=== PATIENT | male | born 1965 | race Caucasian/White ===

== ENCOUNTER → 2021-04-11 | Outpatient (CLI) | payer MEDICARE, MEDICAID ==
--- NOTE | 2021-04-11 12:00 | Diagnostic Imaging Report ---
Indication: Right knee pain AP, oblique, and lateral views of the right knee are obtained. No fracture or acute bony abnormality seen. There is minimal posterior patellar spurring. There is mild medial joint space narrowing and osteophyte formation. There is a prominent joint effusion. Impression: Mild degenerative findings of the medial and patellofemoral compartments. There is a prominent joint effusion. There is no acute fracture visualized. Dictated by: Dictated on workstation # [id number]
== END ==
LOC: RAD FS 08:48
PROVIDERS: ATTEND Nurse Practitioner
DX: M17.11 Unilateral primary osteoarthritis, right knee (principal)
CPT/HCPCS: 73562

== ENCOUNTER 2021-09-19 22:28 | Emergency (ER) | payer MEDICARE, MEDICAID ==
[~2021-09-19] VITALS: Ht 175.2 cm; Wt 117.7 kg
[2021-09-19] MEDS ORDERED: ONDANSETRON 4 MG/2 ML (SDV) Z0FRAN IVP STA (22:50)
[2021-09-19] MEDS ORDERED: NS IV 1000 ML 1,000 ML IV STA (22:50)
[2021-09-19] MEDS ORDERED: DICYCLOMINE 10 MG/ML (BENTYL) 2 ML AMP IM STA (22:50)
--- NOTE | 2021-09-19 23:09 | ED GI ---
General Chief Complaint: Abdominal/GI Problems Stated Complaint: DIARRHEA Source of Information: Patient, Family (Mother) History of Present Illness Date Seen by Provider: Sep 19, 2021 Time Seen by Provider: 22:31 Initial Comments 56-year-old male presenting with complaints of 1 day of loose stools with diarrhea, one episode of vomiting, abdominal cramping. He states that this has been going on throughout the day. He has had similar symptoms about once every 4 years and in the past if he does not get it taken care of quickly he becomes dehydrated. He does have a history of HIV but is well controlled with medicine. He has diabetes controlled with medication and diet. He also has hypertension. He has no known ill contacts. He denies any fever or chills. He was having generalized body aches. He thought that maybe he had eaten something wrong. since he continued to have loose stools he came to the emergency department to be evaluated Timing/Duration: 12-24 Hours Severity/Quality: Moderate, Aching, Cramping Location: Generalized Abdomen Activities at Onset: None Modifying Factors: Worsens With Eating Associated Symptoms: No Back Pain, No Chest Pain, No Diaphoresis, No Fever/Chills; Fatigue; No Headache, No Heartburn; Nausea/Vomiting (x1 episode); No Rash, No Shortness of Air, No Swelling/Mass in Abdomen, No Syncope, No Weakness Allergies and Home Medications Allergies Coded Allergies: Penicillins (Verified Allergy, Unknown, 09/19/21) Sulfa (Sulfonamide Antibiotics) (Verified Allergy, Unknown, 09/19/21) Patient Home Medication List Home Medication List Reviewed: Yes Dicyclomine HCl (Dicyclomine HCl) 10 Mg Capsule, 10 MG PO Q6H PRN for abdominal pain/nausea Prescribed by: KIM OLIVER on 09/20/21 0000 Review of Systems Review of Systems Constitutional: No chills, No dizziness, No fever EENTM: No Symptoms Reported Respiratory: No Symptoms Reported Cardiovascular: No Symptoms Reported Gastrointestinal: See HPI; Denies Blood Streaked Stools, Denies Constipated; Diarrhea, Nausea; Denies Rectal Bleeding; Vomiting (x1) Genitourinary: No Symptoms Reported Musculoskeletal: other (generalized body aches) Skin: No rash Psychiatric/Neurological: Anxiety; Denies Headache Past Oonygyo-Enqvtq-Kezgti Hx Patient Social History Tobacco Use?: Yes Tobacco type used: Cigarettes Smoking Status: Current Everyday Smoker Use of E-Cig and/or Vaping dev: No Substance use?: No Alcohol Use?: No Past Medical History Surgery/Hospitalization HX: HIV, HTN, NIDDM Physical Exam Vital Signs Vital Signs - First Documented 09/19/21 22:34 Temp 36.9 Pulse 106 Resp 16 B/P (MAP) 152/89 (110) Pulse Ox 98 O2 Delivery Room Air Capillary Refill : Height/Weight/BMI Height: '" Weight: lbs. oz. kg; BMI Method: General Appearance: WD/WN, no apparent distress HEENT: PERRL/EOMI, pharynx normal Neck: non-tender, full range of motion, supple, normal inspection Respiratory: chest non-tender, lungs clear, normal breath sounds, no respiratory distress, no accessory muscle use Cardiovascular: normal peripheral pulses, regular rate, rhythm Gastrointestinal: soft, no pulsatile mass, abnormal bowel sounds (hyperactive); No guarding, No rebound; tenderness (mild diffuse) Rectal: deferred Extremities: normal range of motion, non-tender, normal capillary refill Back: no CVA tenderness, no vertebral tenderness Neurologic/Psychiatric: alert, oriented x 3 Skin: normal color, warm/dry Images 1 - mild diffuse cramping pain to abdomen with hyperactive bowel sounds Progress/Results/Core Measures Results/Orders Lab Results Laboratory Tests Test 09/19/21 22:50 09/19/21 23:30 Range/Units White Blood Count 11.1 H 4.3-11.0 10^3/uL Red Blood Count 4.32 4.30-5.52 10^6/uL Hemoglobin 15.3 13.3-17.7 g/dL Hematocrit 43 40-54 % Mean Corpuscular Volume 99 80-99 fL Mean Corpuscular Hemoglobin 35 H 25-34 pg Mean Corpuscular Hemoglobin Concent 36 32-36 g/dL Red Cell Distribution Width 12.5 10.0-14.5 % Platelet Count 161 130-400 10^3/uL Mean Platelet Volume 10.2 9.0-12.2 fL Immature Granulocyte % (Auto) 0 % Neutrophils (%) (Auto) 88 H 42-75 % Lymphocytes (%) (Auto) 7 L 12-44 % Monocytes (%) (Auto) 3 0-12 % Eosinophils (%) (Auto) 1 0-10 % Basophils (%) (Auto) 0 0-10 % Neutrophils # (Auto) 9.8 H 1.8-7.8 10^3/uL Lymphocytes # (Auto) 0.8 L 1.0-4.0 10^3/uL Monocytes # (Auto) 0.3 0.0-1.0 10^3/uL Eosinophils # (Auto) 0.1 0.0-0.3 10^3/uL Basophils # (Auto) 0.0 0.0-0.1 10^3/uL Immature Granulocyte # (Auto) 0.0 0.0-0.1 10^3/uL Neutrophils % (Manual) 89 % Lymphocytes % (Manual) 4 % Monocytes % (Manual) 1 % Eosinophils % (Manual) 2 % Band Neutrophils 1 % Reactive Lymphocytes 3 % Platelet Estimate NORMAL Blood Morphology Comment NORMAL Sodium Level 133 L 135-145 MMOL/L Potassium Level 3.9 3.6-5.0 MMOL/L Chloride Level 101 98-107 MMOL/L Carbon Dioxide Level 23 21-32 MMOL/L Anion Gap 9 5-14 MMOL/L Blood Urea Nitrogen 12 7-18 MG/DL Creatinine 0.64 0.60-1.30 MG/DL Estimat Glomerular Filtration Rate 113 BUN/Creatinine Ratio 19 Glucose Level 123 H 70-105 MG/DL Calcium Level 8.2 L 8.5-10.1 MG/DL Corrected Calcium 8.1 L 8.5-10.1 MG/DL Magnesium Level 1.6 1.6-2.4 MG/DL Total Bilirubin 0.4 0.1-1.0 MG/DL Aspartate Amino Transf (AST/SGOT) 16 5-34 U/L Alanine Aminotransferase (ALT/SGPT) 18 0-55 U/L Alkaline Phosphatase 80 40-136 U/L Total Protein 6.3 L 6.4-8.2 GM/DL Albumin 4.1 3.2-4.5 GM/DL Lipase 14 8-78 U/L Urine Color YELLOW Urine Clarity CLEAR Urine pH 6.0 5-9 Urine Specific Gordon 1.015 L 1.016-1.022 Urine Protein NEGATIVE NEGATIVE Urine Glucose (UA) NEGATIVE NEGATIVE Urine Ketones NEGATIVE NEGATIVE Urine Nitrite NEGATIVE NEGATIVE Urine Bilirubin NEGATIVE NEGATIVE Urine Urobilinogen 0.2 < = 1.0 MG/DL Urine Leukocyte Esterase NEGATIVE NEGATIVE Urine RBC (Auto) NEGATIVE NEGATIVE Urine RBC NONE /HPF Urine WBC NONE /HPF Urine Squamous Epithelial Cells RARE /HPF Urine Crystals NONE /LPF Urine Bacteria NEGATIVE /HPF Urine Casts NONE /LPF Urine Mucus LARGE H /LPF Urine Culture Indicated NO My Orders Orders - KIM OLIVER MD Comprehensive Metabolic Panel (09/19/21 22:47) Lipase (09/19/21 22:47) Ua Culture If Indicated (09/19/21 22:47) Ed Iv/Invasive Line Start (09/19/21 22:47) Cbc With Automated Diff (09/19/21 22:47) Magnesium (09/19/21 22:47) Ns Iv 1000 Ml (Sodium Chloride 0.9%) (09/19/21 22:50) Ondansetron Injection (Zofran Injectio (09/19/21 22:50) Dicyclomine Injection (Bentyl Injection) (09/19/21 22:50) Manual Differential (09/19/21 22:50) Rx-Dicyclomine Capsule (Rx-Bentyl Capsul (09/20/21 00:00) Vital Signs/I&O 09/19/21 22:34 Temp 36.9 Pulse 106 Resp 16 B/P (MAP) 152/89 (110) Pulse Ox 98 O2 Delivery Room Air 09/20/21 00:00 Intake Total 1000 ml Balance 1000 ml Progress Progress Note #1: Progress Note Check labs and urine to see what his electrolytes look like and check his hydration. Give 1 L NS for hydration, Zofran 4 mg IV for nausea, 20 mg Bentyl IM for abdominal cramping/pain Progress Note #2: Progress Note Labs show white blood cell count at the upper limit of normal with a 1.1 thousand white count. He does have a left shift without bandemia. His urinalysis and chemistry panel are pending. Progress Note #3: Progress Note Chemistry and UA appear stable with specific gravity of 1.015. no sign of UTI. LFTs and Lipase are negative. Pt reports feeling better. Will continue with symptomatic care and push fluids and rest. Bentyl for abd cramping and nausea. Check with clinic for continued concerns. Departure Impression Primary Impression: Nausea vomiting and diarrhea Disposition: 01 HOME, SELF-CARE Condition: Stable Departure-Patient Inst. Decision time for Depature: 23:57 Referrals: NO,LOCAL PHYSICIAN (PCP/Family) Primary Care Physician Patient Instructions: Nausea and Vomiting, Adult ED, Diarrhea, Adult ED Add. Discharge Instructions: Follow a liquid diet for 24 to 48 hours and if you tolerate it you could also have a BRAT diet of Bananas, Rice, Applesauce, [place]. Use the Dicyclomine (Bentyl) for abdominal cramping and nausea. Check with clinic if not improving or having more concerns All discharge instructions reviewed with patient and/or family. Voiced understanding. Scripts Dicyclomine HCl (Dicyclomine HCl) 10 Mg Capsule 10 MG PO Q6H PRN for abdominal pain/nausea for 5 Days, #20 CAP 0 Refills Prov: KIM OILVER MD 09/20/21 KIM OLIVER MD Sep 19, 2021 23:09
[2021-09-19 23:12] LABS: BASOPHILS % (AUTO) 0 % (0-10); EOSINOPHILS # (AUTO) 0.1 10^3/uL (0.0-0.3); EOSINOPHILS % (AUTO) 1 % (0-10); HEMATOCRIT 43 % (40-54); HEMOGLOBIN 15.3 g/dL (13.3-17.7); LYMPHOCYTES # (AUTO) 0.8 10^3/uL (1.0-4.0); LYMPHOCYTES % (AUTO) 7 % (12-44); MEAN CORPUSCULAR HEMOGLOBIN 35 pg (25-34); MEAN CORPUSCULAR HGB CONC 36 g/dL (32-36); MEAN CORPUSCULAR VOLUME 99 fL (80-99); MEAN PLATELET VOLUME 10.2 fL (9.0-12.2); MONOCYTES # (AUTO) 0.3 10^3/uL (0.0-1.0); MONOCYTES % (AUTO) 3 % (0-12); NEUTROPHILS # (AUTO) 9.8 10^3/uL (1.8-7.8); NEUTROPHILS % (AUTO) 88 % (42-75); PLATELET COUNT 161 10^3/uL (130-400); WHITE BLOOD COUNT 11.1 10^3/uL (4.3-11.0)
[2021-09-19 23:28] LABS: BAND NEUTROPHILS 1 %; EOSINOPHILS % (MANUAL) 2 %; LYMPHOCYTES % (MANUAL) 4 %; MONOCYTES % (MANUAL) 1 %; NEUTROPHILS % (MANUAL) 89 %; PLATELET ESTIMATE NORMAL; RBC MORPH NORMAL; REACTIVE LYMPHOCYTES 3 %
[2021-09-19 23:30] LABS: BILIRUBIN,TOTAL 0.4 MG/DL (0.1-1.0); CALCIUM 8.2 MG/DL (8.5-10.1); CREATININE SERUM 0.64 MG/DL (0.60-1.30); MAGNESIUM 1.6 MG/DL (1.6-2.4); POTASSIUM 3.9 MMOL/L (3.6-5.0)
[2021-09-19 23:31] LABS: ALBUMIN 4.1 GM/DL (3.2-4.5); TOTAL PROTEIN 6.3 GM/DL (6.4-8.2)
[2021-09-19 23:41] LABS: BILIRUBIN,URINE NEGATIVE (NEGATIVE); CLARITY,URINE CLEAR; COLOR,URINE YELLOW; GLUCOSE, URINE (UA) NEGATIVE (NEGATIVE); KETONES,URINE NEGATIVE (NEGATIVE); LEUKOCYTE ESTERASE ,URINE NEGATIVE (NEGATIVE); NITRITE,URINE NEGATIVE (NEGATIVE); PROTEIN,URINE NEGATIVE (NEGATIVE)
[2021-09-19 23:48] LABS: BACTERIA,URINE NEGATIVE /HPF; SQUAMOUS EPITHELIAL CELL,UR RARE /HPF
[2021-09-20] MEDS ORDERED: DICY10CA12 PO
[2021-09-20] MEDS ORDERED: RX-DICYCLOMINE 10 MG (BENTYL) CAP PPK#4 PO STA
[2021-09-20 00:05] VITALS: BP 135/85
[2021-09-20] MEDS ORDERED: VALG450T3 PO (00:23)
[2021-09-20] MEDS ORDERED: MINO100C5 PO (00:23)
[2021-09-20] MEDS ORDERED: TEST200V21 IM (00:23)
[2021-09-20] MEDS ORDERED: BIKTARVY (00:23)
[2021-09-20] MEDS ORDERED: PITA2TAB2 PO (00:23)
== END 2021-09-20 00:05 | disposition home or self-care (01) ==
LOC: EDUNIT# 22:28 → ER FS 22:29
DX: R11.2 Nausea with vomiting, unspecified (principal); R19.7 Diarrhea, unspecified; E11.9 Type 2 diabetes mellitus without complications; F17.210 Nicotine dependence, cigarettes, uncomplicated; Z79.84 Long term (current) use of oral hypoglycemic drugs
CPT/HCPCS: 36415; 80053; 81000; 83690; 83735; 85007; 85027; 96372; 96374

== ENCOUNTER 2022-04-04 07:05 | Emergency (ER) | payer MEDICARE, MEDICAID ==
[~2022-04-04] VITALS: Ht 175.3 cm; Wt 117.5 kg
[~2022-04-04 07:05] MED LIST: BIKTARVY; DICY10CA12 PO; MINO100C5 PO; PITA2TAB2 PO; TEST200V21 IM; VALG450T3 PO
[2022-04-04 07:16] VITALS: BP 143/105
--- NOTE | 2022-04-04 07:24 | ED EENT ---
History of Present Illness General Chief Complaint: Foreign Body Stated Complaint: LT EAR FOREIGN OBJECT History of Present Illness Date Seen by Provider: Apr 04, 2022 Time Seen by Provider: 07:07 Initial Comments 56-year-old male is here with the tip of an eraser stuck in his left ear. Patient felt his ear itching and stuck a pencil tip into his ear and the eraser came off. Denies pain, discharge. This occurred today morning. Allergies and Home Medications Allergies Coded Allergies: Penicillins (Verified Allergy, Unknown, 09/19/21) Sulfa (Sulfonamide Antibiotics) (Verified Allergy, Unknown, 09/19/21) Patient Home Medication List Home Medication List Reviewed: Yes Dicyclomine HCl (Dicyclomine HCl) 10 Mg Capsule, 10 MG PO Q6H PRN for abdominal pain/nausea Prescribed by: KIM OLIVER on 09/20/21 0000 Minocycline HCl (Minocycline HCl) 100 Mg Capsule, 100 MG PO, (Reported) Entered as Reported by: MED BURRIS on 09/20/2122 Pitavastatin Calcium (Livalo) 2 Mg Tablet, 2 MG PO, (Reported) Entered as Reported by: MED BURRIS on 09/20/2122 Testosterone Cypionate (Testosterone Cypionate) 200 Mg/1 Ml Vial, 200 MG IM, (Reported) Entered as Reported by: MED BURRIS on 09/20/2122 Valganciclovir HCl (Valganciclovir HCl) 450 Mg Tablet, 450 MG PO, (Reported) Entered as Reported by: MED BURRIS on 09/20/2122 [Biktarvy] , (Reported) Entered as Reported by: MED BURRIS on 09/20/2122 Review of Systems Review of Systems Constitutional: no symptoms reported Ears: Other Nose: no symptoms reported Mouth: no symptoms reported Throat: no symptoms reported Respiratory: no symptoms reported Cardiovascular: no symptoms reported Gastrointestinal: no symptoms reported Musculoskeletal: no symptoms reported Skin: no symptoms reported Neurological: No Symptoms Reported Hematologic/Lymphatic: No Symptoms Reported Immunological/Allergic: no symptoms reported Past Hyvvshx-Ifexwz-Wqurvf Hx Immunizations Up To Date First/Initial COVID19 Vaccinat: UNK Second COVID19 Vaccination Leoncio: UNK Past Medical History Surgery/Hospitalization HX: HIV, HTN, NIDDM Physical Exam Height, Weight, BMI Height: '" Weight: lbs. oz. kg; 38.00 BMI Method: General Appearance: WD/WN, no apparent distress Eyes: bilateral eye normal inspection, bilateral eye PERRL, bilateral eye EOMI Ears: left ear TM normal (TM intact after foreign body removal), left ear fo reign body (Red eraser tip seen in posterior ear) Nose: normal inspection Mouth/Throat: normal mouth inspection Neck: full range of motion Skin: normal color Progress/Results/Core Measures Progress Progress Note : Progress Note 1. LEFT EAR FOREIGN BODY REMOVAL: - Foreign body ( eraser) removed with alligator forceps - TM intact after removal Departure Impression Primary Impression: Foreign body in ear Qualified Codes: T16.2XXA - Foreign body in left ear, initial encounter Disposition: HOME, SELF-CARE Condition: Improved Departure-Patient Inst. Referrals: TAMARA MARQUES MD (PCP) Primary Care Physician Patient Instructions: Foreign Body in Ear, Rectal Foreign Body Removal (DC) Add. Discharge Instructions: Advice: do not place foreign objects in the ear All discharge instructions reviewed with patient and/or family. Voiced understanding. BERTA PERKINS MD Apr 04, 2022 07:24
== END 2022-04-04 07:24 | disposition home or self-care (01) ==
LOC: EDUNIT# 07:05 → ER FS 07:07
DX: T16.2XXA Foreign body in left ear, initial encounter (principal)
CPT/HCPCS: 99281

== ENCOUNTER → 2022-10-10 | Outpatient (CLI) | payer MEDICARE, MEDICAID ==
[~2022-10-10] MED LIST changes: +CATHETER FLUSH 10 ML SYR IV PRN; +HOLD METFORMIN - RECEIVED CONTRAST 20 ML VIAL IV SCH; +IOHEXOL 350 MG/ML 100 ML (OMNIPAQUE 350) VIAL IV ONE; +NS 100 ML (IVPB) BAG IV ONE; +VALG450T15 PO; -VALG450T3 PO
[2022-10-10 12:51] LABS: CREATININE SERUM 0.77 MG/DL (0.60-1.30)
--- NOTE | 2022-10-10 14:11 | Diagnostic Imaging Report ---
PROCEDURE: CT abdomen and pelvis with contrast. TECHNIQUE: Multiple contiguous axial images were obtained through the abdomen and pelvis after administration of intravenous contrast. Auto Exposure Controls were utilized during the CT exam to meet ALARA standards for radiation dose reduction. All CT scans use one or more of the following dose optimizing techniques: automated exposure control, MA and/or KvP adjustment based on patient size and exam type or iterative reconstruction. INDICATION: Abdominal pain COMPARISON: None FINDINGS: Limited views of the chest demonstrates no acute findings. The liver, spleen are normal. Calcified gallstones are seen within the gallbladder. The gallbladder is nondistended. No surrounding fat stranding. The adrenal glands are normal. Pancreas is normal. The aorta demonstrates mild aortic atherosclerosis without aneurysm. The celiac artery demonstrates a calcified aneurysm projecting to the left and measuring 1.1 cm. The bowel is nondilated. No surrounding inflammatory changes. The appendix is normal. The kidneys demonstrate normal renal parenchymal enhancement. Small simple cysts noted within the right kidney. Scattered diverticulosis within the sigmoid colon without evidence of diverticulitis. No bowel obstruction. The osseous structures demonstrate no lytic or sclerotic bone lesions. Small fat-containing umbilical hernia. IMPRESSION: No acute findings in abdomen or pelvis. 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 Cholelithiasis. No gallbladder distention or pericholecystic fat stranding. Diverticulosis the sigmoid colon without evidence of diverticulitis. Dictated by: Dictated on workstation # [id number]
== END ==
LOC: RAD FS 11:52
PROVIDERS: ATTEND Internal Medicine Rheumatology
DX: K80.20 Calculus of gallbladder without cholecystitis without obstruction (principal); K57.30 Diverticulosis of large intestine without perforation or abscess without bleeding; I72.8 Aneurysm of other specified arteries
CPT/HCPCS: 36415; 74177; 82565; 84520; Q9967

== ENCOUNTER 2022-10-16 13:40 | Emergency (ER) | payer MEDICARE, MEDICAID ==
[~2022-10-16 13:40] MED LIST changes: -CATHETER FLUSH 10 ML SYR IV PRN; -HOLD METFORMIN - RECEIVED CONTRAST 20 ML VIAL IV SCH; -IOHEXOL 350 MG/ML 100 ML (OMNIPAQUE 350) VIAL IV ONE; -NS 100 ML (IVPB) BAG IV ONE
[2022-10-16 14:06] LABS: BASOPHILS % (AUTO) 1 % (0-10); EOSINOPHILS # (AUTO) 0.1 10^3/uL (0.0-0.3); EOSINOPHILS % (AUTO) 1 % (0-10); HEMATOCRIT 43 % (40-54); HEMOGLOBIN 15.2 g/dL (13.3-17.7); LYMPHOCYTES # (AUTO) 2.4 10^3/uL (1.0-4.0); LYMPHOCYTES % (AUTO) 30 % (12-44); MEAN CORPUSCULAR HEMOGLOBIN 35 pg (25-34); MEAN CORPUSCULAR HGB CONC 35 g/dL (32-36); MEAN CORPUSCULAR VOLUME 98 fL (80-99); MEAN PLATELET VOLUME 9.9 fL (9.0-12.2); MONOCYTES # (AUTO) 0.4 10^3/uL (0.0-1.0); MONOCYTES % (AUTO) 5 % (0-12); NEUTROPHILS # (AUTO) 4.9 10^3/uL (1.8-7.8); NEUTROPHILS % (AUTO) 63 % (42-75); PLATELET COUNT 224 10^3/uL (130-400); WHITE BLOOD COUNT 7.8 10^3/uL (4.3-11.0)
[2022-10-16 14:23] LABS: BUN/CREATININE RATIO 8; CARBON DIOXIDE 25 MMOL/L (21-32); CHLORIDE 103 MMOL/L (98-107); CREATININE SERUM 0.74 MG/DL (0.60-1.30); GFR ESTIMATED 107; GLUCOSE 286 MG/DL (70-105); POTASSIUM 4.3 MMOL/L (3.6-5.0); SODIUM 138 MMOL/L (135-145)
[2022-10-16 14:24] LABS: ALANINE AMINOTRANSFERASE 36 U/L (0-55); ALKALINE PHOSPHATASE 119 U/L (40-136); BILIRUBIN,TOTAL 0.3 MG/DL (0.1-1.0); CALCIUM 8.8 MG/DL (8.5-10.1); LIPASE 37 U/L (8-78); TOTAL PROTEIN 6.4 GM/DL (6.4-8.2)
[2022-10-16] MEDS ORDERED: LIDOCAINE 2% VISCOUS 15 ML UDC PO ONE (14:45)
[2022-10-16] MEDS ORDERED: ONDANSETRON 4 MG/2 ML (SDV) Z0FRAN IVP ONE (14:45)
[2022-10-16] MEDS ORDERED: ANTACID SUSP 30 ML UDC (MYLANTA) PO ONE (14:45)
--- NOTE | 2022-10-16 14:51 | ED Abdominal Pain ---
General Chief Complaint: Abdominal/GI Problems Stated Complaint: LWR ABD PN, PN SHOULDER BACK, INDEGESTION Nursing Triage Note: PT REPORTS ONGOING EPIGASTRIC PAIN THAT RADIATES TO HIS BACK. HE REPORTS HE HAS ALSO HAD SOME INDIGESTION. Source of Information: Patient, Old Records Exam Limitations: No Limitations History of Present Illness Date Seen by Provider: Oct 16, 2022 Time Seen by Provider: 13:47 Initial Comments This 57-year-old gentleman presents to the emergency room with complaints of a generalized abdominal pain as well as pain in the mid upper back. He presumes this to be related to his gallbladder. Symptoms started a couple weeks ago with diarrhea. A CT was obtained October 10 for outpatient evaluation. He was noted to have gallstones without cholecystitis. 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 Patient reports the pain in his upper back is only present when he lies flat. He denies any known history of GERD. He reports recent history of allergy symptoms including congestion and minor cough. He denies fever. He is HIV positive with negative viral counts. His primary care provider is Dr. Escobar and his infectious disease specialist is Dr. Leia Marques in [place]. He denies any nausea or vomiting. Allergies and Home Medications Allergies Coded Allergies: Penicillins (Verified Allergy, Unknown, 09/19/21) Sulfa (Sulfonamide Antibiotics) (Verified Allergy, Unknown, 09/19/21) Patient Home Medication List Home Medication List Reviewed: Yes Dicyclomine HCl (Dicyclomine HCl) 10 Mg Capsule, 10 MG PO Q6H PRN for abdominal pain/nausea Prescribed by: KIM OLIVER on 09/20/21 0000 Minocycline HCl (Minocycline HCl) 100 Mg Capsule, 100 MG PO, (Reported) Entered as Reported by: MED BURRIS on 09/20/21 0023 Ondansetron (Ondansetron Odt) 4 Mg Tab.rapdis, 4 MG SL Q4H PRN for NAUSEA/VOMITING Prescribed by: MARYURI ZEPEDA on 10/16/22 1528 Pantoprazole Sodium (Protonix) 40 Mg Tablet.dr, 40 MG PO DAILY Prescribed by: MARYURI ZEPEDA on 10/16/22 1528 Pitavastatin Calcium (Livalo) 2 Mg Tablet, 2 MG PO, (Reported) Entered as Reported by: MED BURRIS on 09/20/2122 Testosterone Cypionate (Testosterone Cypionate) 200 Mg/1 Ml Vial, 200 MG IM, (Reported) Entered as Reported by: MED BURRIS on 09/20/2122 Valganciclovir HCl (Valganciclovir HCl) 450 Mg Tablet, 450 MG PO, (Reported) Entered as Reported by: MED BURRIS on 09/20/2122 [Biktarvy] , (Reported) Entered as Reported by: MED BURRIS on 09/20/2122 Review of Systems Review of Systems Constitutional: no symptoms reported, diaphoresis (A few days ago but not currently) EENTM: No Symptoms Reported Respiratory: No Symptoms Reported Cardiovascular: No Symptoms Reported Gastrointestinal: See HPI Genitourinary: No Symptoms Reported Musculoskeletal: see HPI Skin: no symptoms reported Psychiatric/Neurological: No Symptoms Reported Endocrine: No Symptoms Reported Hematologic/Lymphatic: No Symptoms Reported Past Txoamjv-Fmlerp-Jweqmj Hx Patient Social History Tobacco Use?: Yes Tobacco type used: Cigarettes Smoking Status: Current Everyday Smoker Use of E-Cig and/or Vaping dev: No Substance use?: No Alcohol Use?: No Pt feels they are or have been: No Immunizations Up To Date First/Initial COVID19 Vaccinat: UNK Second COVID19 Vaccination Leoncio: UNK Third COVID19 Vaccination Date: UNK Past Medical History Surgery/Hospitalization HX: HIV, HTN, NIDDM Surgeries: Yes Adenoidectomy, Tonsillectomy Respiratory: No Cardiac: No Neurological: No HIV/AIDS: Yes Genitourinary: No Gastrointestinal: Yes Gall Bladder Disease (Gallstone) Musculoskeletal: No Physical Exam Vital Signs Vital Signs - First Documented 10/16/22 13:59 Temp 36.5 Pulse 89 Resp 16 B/P (MAP) 146/92 (110) Pulse Ox 96 O2 Delivery Room Air Capillary Refill : Less Than 3 Seconds Height/Weight/BMI Height: '" Weight: lbs. oz. kg; 38.00 BMI Method: General Appearance: WD/WN, no apparent distress, obese HEENT: normal ENT inspection Neck: normal inspection, other (Tenderness in the right proximal lateral neck musculature) Respiratory: chest non-tender, lungs clear, normal breath sounds, no respiratory distress Cardiovascular: no edema, no gallop, no murmur Gastrointestinal: normal bowel sounds, soft, tenderness (Generalized, mild, central, nonfocal) Extremities: non-tender, no pedal edema, other (Chronic blotchy discoloration related to diabetes and HIV) Back: normal inspection, no vertebral tenderness Neurologic/Psychiatric: no motor/sensory deficits, alert, normal mood/affect, oriented x 3 Skin: warm/dry, rash (As above) Progress/Results/Core Measures Results/Orders Lab Results Laboratory Tests Test 10/16/22 13:45 Range/Units White Blood Count 7.8 4.3-11.0 10^3/uL Red Blood Count 4.38 4.30-5.52 10^6/uL Hemoglobin 15.2 13.3-17.7 g/dL Hematocrit 43 40-54 % Mean Corpuscular Volume 98 80-99 fL Mean Corpuscular Hemoglobin 35 H 25-34 pg Mean Corpuscular Hemoglobin Concent 35 32-36 g/dL Red Cell Distribution Width 12.4 10.0-14.5 % Platelet Count 224 130-400 10^3/uL Mean Platelet Volume 9.9 9.0-12.2 fL Immature Granulocyte % (Auto) 1 % Neutrophils (%) (Auto) 63 42-75 % Lymphocytes (%) (Auto) 30 12-44 % Monocytes (%) (Auto) 5 0-12 % Eosinophils (%) (Auto) 1 0-10 % Basophils (%) (Auto) 1 0-10 % Neutrophils # (Auto) 4.9 1.8-7.8 10^3/uL Lymphocytes # (Auto) 2.4 1.0-4.0 10^3/uL Monocytes # (Auto) 0.4 0.0-1.0 10^3/uL Eosinophils # (Auto) 0.1 0.0-0.3 10^3/uL Basophils # (Auto) 0.0 0.0-0.1 10^3/uL Immature Granulocyte # (Auto) 0.0 0.0-0.1 10^3/uL Sodium Level 138 135-145 MMOL/L Potassium Level 4.3 3.6-5.0 MMOL/L Chloride Level 103 98-107 MMOL/L Carbon Dioxide Level 25 21-32 MMOL/L Anion Gap 10 5-14 MMOL/L Blood Urea Nitrogen 6 L 7-18 MG/DL Creatinine 0.74 0.60-1.30 MG/DL Estimat Glomerular Filtration Rate 107 BUN/Creatinine Ratio 8 Glucose Level 286 H 70-105 MG/DL Calcium Level 8.8 8.5-10.1 MG/DL Corrected Calcium 8.8 8.5-10.1 MG/DL Total Bilirubin 0.3 0.1-1.0 MG/DL Aspartate Amino Transf (AST/SGOT) 28 5-34 U/L Alanine Aminotransferase (ALT/SGPT) 36 0-55 U/L Alkaline Phosphatase 119 40-136 U/L Troponin I < 0.30 <0.30 NG/ML C-Reactive Protein < 0.30 <0.50 MG/DL Total Protein 6.4 6.4-8.2 GM/DL Albumin 4.0 3.2-4.5 GM/DL Lipase 37 8-78 U/L My Orders Orders - MARYURI GIFFORD MD Cbc With Automated Diff (10/16/22 13:59) Comprehensive Metabolic Panel (10/16/22 13:59) Lipase (10/16/22 13:59) Crp Fs (10/16/22 13:59) Troponin I Fs (10/16/22 13:59) Ed Iv/Invasive Line Start (10/16/22 13:59) Ekg Tracing (10/16/22 13:59) Monitor-Rhythm Ecg Trace Only (10/16/22 13:59) Ondansetron Injection (Zofran Injectio (10/16/22 14:45) Lidocaine 2% Viscous 15 Ml (Xylocaine Vi (10/16/22 14:45) Antacid Suspension (Mylanta Suspension (10/16/22 14:45) Medications Given in ED Current Medications Medications Dose Ordered Sig/Rashida Route Start Time Stop Time Status Last Admin Dose Admin Al Hydrox/Mg Hydrox/Simethicone 30 ml ONCE ONCE PO 10/16/22 14:45 10/16/22 14:46 DC 10/16/22 14:42 30 ML Lidocaine HCl 15 ml ONCE ONCE PO 10/16/22 14:45 10/16/22 14:46 DC 10/16/22 14:42 15 ML Ondansetron HCl 4 mg ONCE ONCE IVP 10/16/22 14:45 10/16/22 14:46 DC 10/16/22 14:42 4 MG Vital Signs/I&O 10/16/22 10/16/22 13:59 15:24 Temp 36.5 36.7 Pulse 89 81 Resp 16 16 B/P (MAP) 146/92 (110) 135/86 Pulse Ox 96 97 O2 Delivery Room Air Room Air Blood Pressure Mean: 110 Progress Progress Note : Progress Note Work-up was unremarkable including CBC, CMP, CRP and lipase. Symptoms have not really changed since his CT scan on October 10. Therefore no additional imaging was pursued. A trial of GI cocktail was given. This did not really improve his symptoms. Given the location of his pain, description of frequent belching and irritation after eating, and the specific worsening when lying flat, his pain seems to be at least in part due to acid reflux and/or gastritis. He was given instructions to treat accordingly as well as a prescription of Protonix. He was advised to seek referral for gallbladder ultrasound and upper endoscopy if treating GERD and gastritis does not resolve his symptoms within 2 weeks. His neck pain seems to be unrelated as there appears to be tenderness in the musculature of the right lateral proximal neck. EKG was interpreted by me and no contributing pathology was identified. Initial ECG Impression Date: Oct 16, 2022 Initial ECG Impression Time: 14:10 Initial ECG Rate: 79 Initial ECG Rhythm: Normal Sinus Comment Sinus rhythm with no ST elevation or depression. Incomplete right bundle branch block noted on automated read. No other significant abnormal intervals. No axis deviation. Departure Impression Primary Impression: Generalized abdominal pain Additional Impressions: Gastroesophageal reflux Qualified Codes: K21.9 - Gastro-esophageal reflux disease without esophagitis Neck pain Disposition: 01 HOME, SELF-CARE Condition: Stable Departure-Patient Inst. Decision time for Depature: 15:25 Referrals: LEIA MARQUES MD (PCP) Primary Care Physician Patient Instructions: Abdominal Pain, Adult ED, Acid Reflux and Gastroesophageal Reflux Disease in Adults Add. Discharge Instructions: Take Protonix daily as prescribed. Sleep with your head elevated. Avoid laying completely flat as this will allow gravity to worsen acid reflux. Avoid the following: Eating large meals, eating close to bedtime, caffeine, carbonation, chocolate, citrus fruits and juices, tomato products, mints, alcohol, tobacco, NSAID medications such as ibuprofen or naproxen, spicy foods, fatty/greasy foods, and anything else you know irritates your stomach. If your pain is not resolved after 2 weeks of following these instructions, you should seek further evaluation with gallbladder ultrasound and endoscopy. You should also discuss screening for H. pylori with your primary care provider. For nausea and vomiting you may use Zofran (ondansetron) as prescribed. The pain in your right neck is likely musculoskeletal in nature. You may treat this with gentle heat, gentle massage, topical therapy such as lidocaine patches, and Tylenol. Report progress to your primary care provider in follow- up. Please follow-up with your primary care provider within the next 2 weeks. All discharge instructions reviewed with patient and/or family. Voiced understanding. Scripts Ondansetron (Ondansetron Odt) 4 Mg Tab.rapdis 4 MG SL Q4H PRN for NAUSEA/VOMITING, #10 TAB Prov: MARYURI GIFFORD MD 10/16/22 Pantoprazole Sodium (Protonix) 40 Mg Tablet.dr 40 MG PO DAILY, #30 TAB Prov: MARYURI GIFFORD MD 10/16/22 Copy Copies To 1: BRAD ESCOBAR MD, JOSHUA T MD Oct 16, 2022 14:51
[2022-10-16 15:24] VITALS: BP 135/86
[2022-10-16] MEDS ORDERED: PANT40TA2 PO (15:28)
[2022-10-16] MEDS ORDERED: ONDA4TAB11 SL (15:28)
== END 2022-10-16 15:31 | disposition home or self-care (01) ==
LOC: EDUNIT# 13:40 → ER FS 13:43
DX: K21.9 Gastro-esophageal reflux disease without esophagitis (principal); M54.2 Cervicalgia; E66.9 Obesity, unspecified; F17.210 Nicotine dependence, cigarettes, uncomplicated; Z68.38 Body mass index [BMI] 38.0-38.9, adult
CPT/HCPCS: 36415; 80053; 83690; 84484; 85025; 86141; 93005; 93041

== ENCOUNTER → 2023-01-25 | Outpatient (CLI) | payer MEDICARE, MEDICAID ==
[~2023-01-25] MED LIST changes: +ONDA4TAB11 SL; +PANT40TA2 PO
--- NOTE | 2023-01-25 10:16 | Diagnostic Imaging Report ---
EXAMINATION: CT chest without contrast (lung screening). TECHNIQUE: Multiple contiguous axial images were obtained through the chest without the use of intravenous contrast according to lung cancer screening protocol. All CT scans use one or more of the following dose optimizing techniques: automated exposure control, MA and/or KvP adjustment based on patient size and exam type or iterative reconstruction. HISTORY: 57 pack year history of smoking. COMPARISON: None available. FINDINGS: There is no edema or pneumonia. No pleural effusion. No pneumothorax. No suspicious nodules. There is no axillary or supraclavicular lymphadenopathy. There is no mediastinal lymphadenopathy. Heart size is normal. There are mild coronary artery calcifications. No pericardial effusion. Aorta is normal in caliber. Limited views of the upper abdomen are unremarkable. There are no suspicious osseus lesions. IMPRESSION: 1. No suspicious pulmonary nodules. LUNG-RADS CATEGORY: 1 MODIFIER: None. Dictated by: Dictated on workstation # [id number]
== END ==
LOC: RAD 08:45
PROVIDERS: ATTEND Nurse Practitioner Family
DX: Z12.2 Encounter for screening for malignant neoplasm of respiratory organs (principal); F17.210 Nicotine dependence, cigarettes, uncomplicated
CPT/HCPCS: 71271

== ENCOUNTER 2023-01-31 06:19 | Emergency (ER) | payer MEDICARE, MEDICAID ==
[~2023-01-31] VITALS: Ht 175.2 cm; Wt 113.3 kg
[2023-01-31 06:31] VITALS: BP 142/98
[2023-01-31] MEDS ORDERED: DICYCLOMINE 10 MG/ML 2 ML AMPULE IM STA (06:58)
[2023-01-31] MEDS ORDERED: NS IV 1000 ML 1,000 ML IV STA (06:58)
[2023-01-31 07:14] LABS: BASOPHILS % (AUTO) 0 % (0-10); EOSINOPHILS # (AUTO) 0.1 10^3/uL (0.0-0.3); EOSINOPHILS % (AUTO) 1 % (0-10); HEMATOCRIT 43 % (40-54); HEMOGLOBIN 15.2 g/dL (13.3-17.7); LYMPHOCYTES # (AUTO) 1.1 10^3/uL (1.0-4.0); LYMPHOCYTES % (AUTO) 13 % (12-44); MEAN CORPUSCULAR HEMOGLOBIN 35 pg (25-34); MEAN CORPUSCULAR HGB CONC 35 g/dL (32-36); MEAN CORPUSCULAR VOLUME 99 fL (80-99); MEAN PLATELET VOLUME 9.9 fL (9.0-12.2); MONOCYTES # (AUTO) 0.7 10^3/uL (0.0-1.0); MONOCYTES % (AUTO) 8 % (0-12); NEUTROPHILS % (AUTO) 78 % (42-75); PLATELET COUNT 167 10^3/uL (130-400)
--- NOTE | 2023-01-31 07:18 | ED GI ---
General Chief Complaint: Abdominal/GI Problems Stated Complaint: MED SIDE EFFECTS Nursing Triage Note: Patient states that he went to urgent care yesterday for issues with his eyes. Patients eyes are red and the patient was given Ofloxacin. Patient was advised yesterday that if he began having diarrhea while taking this medication, to go directly to the ER. Patient reports that he began having diarrhea and has taken 4 immodium tablets prior to arrival, with no relief. Source of Information: Patient, Old Records (KIM OLIVER MD) History of Present Illness Date Seen by Provider: Jan 31, 2023 Time Seen by Provider: 06:31 Initial Comments 57-year-old male presenting with complaints of multiple episodes of diarrhea since 4 PM yesterday. He stated that he was having yellow-colored diarrhea all night. He was seen yesterday in urgent care and told that he had sinusitis. He was started on ofloxacin for his eyedrops and given steroid nasal spray. He had matting of the eyes yesterday and they are still red and irritated today but not as bad since he started the antibiotic drop. He states that urgent care told him if he got diarrhea that he should go to the emergency department. He states in the past he has had diarrhea to the point that he got dehydrated and he was concerned that that might be happening again. He periodically gets diarrhea because he has some gallbladder issues and he was concerned that the diarrhea could be from that. He also thought maybe the diarrhea was from a virus but he was not sure why urgent care stressed that he needed to be seen right away in the ER if he had diarrhea. He denies having any nausea or vomiting. He is not feeling dizzy or lightheaded. He is concerned that he might be getting dehydrated because of the diarrhea because that happened once before. He also has had a recent light cough and upper respiratory symptoms and had a CT scan of his chest on January 25. From review of the electronic medical record the report had shown no acute process in his chest. He did have a CT scan of his abdomen and pelvis in September and that had shown some sigmoid diverticulosis without diverticulitis. He is complaining of some cramping pain in the left lower quadrant. He denies having any blood in his diarrhea. There is no pain or burning with urination and no blood in his urine. He denies having a fever. He also is concerned that his diarrhea may be related to his HIV because he has a diagnosis of AIDS because of having CD4 count of 9 when he was first diagnosed but currently his CD4 count is over 400 and he has been undetectable on his viral load for over 15 years. Timing/Duration: 12-24 Hours Severity/Quality: Moderate, Cramping Location: LLQ Activities at Onset: None Modifying Factors: Worsens With Defecating, Worsens With Movement, Worsens With Palpation Associated Symptoms: No Back Pain, No Chest Pain, No Diaphoresis, No Fever/Chills, No Fatigue, No Headache, No Heartburn, No Nausea/Vomiting, No Rash, No Shortness of Air, No Swelling/Mass in Abdomen, No Syncope; Weakness (KIM OLIVER MD) Allergies and Home Medications Allergies Coded Allergies: Penicillins (Verified Allergy, Unknown, 09/19/21) Sulfa (Sulfonamide Antibiotics) (Verified Allergy, Unknown, 09/19/21) Patient Home Medication List Home Medication List Reviewed: Yes (KIM OLIVER MD) Dicyclomine HCl (Dicyclomine HCl) 10 Mg Capsule, 10 MG PO Q6H PRN for abdominal pain/nausea Prescribed by: KIM OLIVER on 09/20/21 0000 Minocycline HCl (Minocycline HCl) 100 Mg Capsule, 100 MG PO, (Reported) Entered as Reported by: MED BURRIS on 09/20/2122 Ondansetron (Ondansetron Odt) 4 Mg Tab.rapdis, 4 MG SL Q4H PRN for NA USEA/VOMITING Prescribed by: MARYURI ZEPEDA on 10/16/221527 Pantoprazole Sodium (Protonix) 40 Mg Tablet.dr, 40 MG PO DAILY Prescribed by: MARYURI ZEPEDA on 10/16/221527 Pitavastatin Calcium (Livalo) 2 Mg Tablet, 2 MG PO, (Reported) Entered as Reported by: MED BURRIS on 09/20/2122 Testosterone Cypionate (Testosterone Cypionate) 200 Mg/1 Ml Vial, 200 MG IM, (Reported) Entered as Reported by: MED BURRIS on 09/20/2122 Valganciclovir HCl (Valganciclovir HCl) 450 Mg Tablet, 450 MG PO, (Reported) Entered as Reported by: MED BURRIS on 09/20/2122 [Biktarvy] , (Reported) Entered as Reported by: MED BURRIS on 09/20/2122 Review of Systems Review of Systems Constitutional: No chills, No dizziness, No fever; malaise EENTM: Eye Pain, Eye Tearing, Ear Drainage (matting of the eyes) Respiratory: Cough (chronic but worse in last few weeks); Denies Shortness of Air Cardiovascular: Denies Chest Pain Gastrointestinal: See HPI, Diarrhea; Denies Nausea, Denies Rectal Bleeding, Denies Vomiting Genitourinary: Denies Burning Musculoskeletal: No back pain Skin: No rash Psychiatric/Neurological: Headache (sinus headache yesterday before starting nasal spray and Ofloxacin eye drops) (KIM OLIVER MD) Past Flyqfgl-Zyense-Nogqmm Hx Patient Social History Tobacco Use?: Yes Tobacco type used: Cigarettes Smoking Status: Current Everyday Smoker Substance use?: No Alcohol Use?: No Pt feels they are or have been: No (KIM OLIVER MD) Immunizations Up To Date First/Initial COVID19 Vaccinat: UNK Second COVID19 Vaccination Leoncio: UNK Third COVID19 Vaccination Date: UNK (KIM OLIVER MD) Past Medical History Surgery/Hospitalization HX: AIDS, Cholelithiasis Surgeries: Yes Adenoidectomy, Tonsillectomy Respiratory: No Cardiac: No Neurological: No HIV/AIDS: Yes Genitourinary: No Gastrointestinal: Yes Gall Bladder Disease Musculoskeletal: No (KIM OLIVER MD) Physical Exam Vital Signs Vital Signs - First Documented 01/31/23 06:31 Temp 36.8 Pulse 98 Resp 16 B/P (MAP) 142/98 (113) Pulse Ox 99 O2 Delivery Room Air (AGIULA,MICHEAL L DO) Vital Signs Capillary Refill : Less Than 3 Seconds (KIM OLIVER MD) Height/Weight/BMI Height: '" Weight: lbs. oz. kg; 36.00 BMI Method: General Appearance: WD/WN, no apparent distress, obese HEENT: PERRL/EOMI, pharynx normal, other (Bilateral conjunctival inflammation. No drainage currently. No tenderness over the maxillary sinuses mild t enderness over the frontal sinuses) Neck: non-tender, full range of motion, supple Respiratory: chest non-tender, no respiratory distress, no accessory muscle use, wheezing (bilateral bases) Cardiovascular: normal peripheral pulses, regular rate, rhythm Gastrointestinal: soft, no pulsatile mass, abnormal bowel sounds (hyperactive bowel sounds); No distended, No guarding, No rebound; tenderness (LLQ tender to palpation) Rectal: deferred Extremities: normal range of motion, non-tender, normal capillary refill Back: no CVA tenderness Neurologic/Psychiatric: alert, oriented x 3 Skin: warm/dry (KIM OLIVER MD) Images 1 - LLQ abdominal cramping increased pain with palpation (KIM OLIVER MD) Progress/Results/Core Measures Results/Orders Lab Results Laboratory Tests Test 01/31/23 07:08 01/31/23 07:40 Range/Units White Blood Count 9.0 4.3-11.0 10^3/uL Red Blood Count 4.39 4.30-5.52 10^6/uL Hemoglobin 15.2 13.3-17.7 g/dL Hematocrit 43 40-54 % Mean Corpuscular Volume 99 80-99 fL Mean Corpuscular Hemoglobin 35 H 25-34 pg Mean Corpuscular Hemoglobin Concent 35 32-36 g/dL Red Cell Distribution Width 12.6 10.0-14.5 % Platelet Count 167 130-400 10^3/uL Mean Platelet Volume 9.9 9.0-12.2 fL Immature Granulocyte % (Auto) 0 % Neutrophils (%) (Auto) 78 H 42-75 % Lymphocytes (%) (Auto) 13 12-44 % Monocytes (%) (Auto) 8 0-12 % Eosinophils (%) (Auto) 1 0-10 % Basophils (%) (Auto) 0 0-10 % Neutrophils # (Auto) 7.0 1.8-7.8 10^3/uL Lymphocytes # (Auto) 1.1 1.0-4.0 10^3/uL Monocytes # (Auto) 0.7 0.0-1.0 10^3/uL Eosinophils # (Auto) 0.1 0.0-0.3 10^3/uL Basophils # (Auto) 0.0 0.0-0.1 10^3/uL Immature Granulocyte # (Auto) 0.0 0.0-0.1 10^3/uL Sodium Level 135 135-145 MMOL/L Potassium Level 4.2 3.6-5.0 MMOL/L Chloride Level 100 98-107 MMOL/L Carbon Dioxide Level 23 21-32 MMOL/L Anion Gap 12 5-14 MMOL/L Blood Urea Nitrogen 14 7-18 MG/DL Creatinine 0.81 0.60-1.30 MG/DL Estimat Glomerular Filtration Rate 104 BUN/Creatinine Ratio 17 Glucose Level 179 H 70-105 MG/DL Calcium Level 9.4 8.5-10.1 MG/DL Corrected Calcium 9.2 8.5-10.1 MG/DL Total Bilirubin 0.3 0.1-1.0 MG/DL Aspartate Amino Transf (AST/SGOT) 15 5-34 U/L Alanine Aminotransferase (ALT/SGPT) 16 0-55 U/L Alkaline Phosphatase 115 40-136 U/L Total Protein 6.7 6.4-8.2 GM/DL Albumin 4.2 3.2-4.5 GM/DL Lipase 36 8-78 U/L Urine Color YELLOW Urine Clarity CLEAR Urine pH 6.0 5-9 Urine Specific [place] <=1.005 1.016-1.022 Urine Protein NEGATIVE NEGATIVE Urine Glucose (UA) NEGATIVE NEGATIVE Urine Ketones NEGATIVE NEGATIVE Urine Nitrite NEGATIVE NEGATIVE Urine Bilirubin NEGATIVE NEGATIVE Urine Urobilinogen 0.2 < = 1.0 MG/DL Urine Leukocyte Esterase NEGATIVE NEGATIVE Urine RBC (Auto) NEGATIVE NEGATIVE Urine RBC NONE /HPF Urine WBC NONE /HPF Urine Squamous Epithelial Cells RARE /HPF Urine Crystals NONE /LPF Urine Bacteria NEGATIVE /HPF Urine Casts NONE /LPF Urine Mucus NEGATIVE /LPF Urine Culture Indicated NO (AGUILA,MICHEAL L DO) Medications Given in ED (AGUILA,MICHEAL L DO) Vital Signs/I&O 01/31/23 06:31 Temp 36.8 Pulse 98 Resp 16 B/P (MAP) 142/98 (113) Pulse Ox 99 O2 Delivery Room Air (AGUILA,MICHEAL L DO) Blood Pressure Mean: 113 Progress Progress Note : Progress Note Potential diagnosis of viral diarrhea, enterovirus, dehydration, diverticulosis, diverticulitis, electrolyte imbalance, dehydration. Establish peripheral IV access and send labs for complete blood count, comprehensive metabolic profile, lipase, urinalysis. Administer normal saline 1 L IV fluid bolus for hydration, Bentyl 20 mg IM x1 for abdominal cramping and diarrhea. CT scan of the abdomen and pelvis with IV contrast to look for signs of diverticulitis or colitis. Care passed to Dr. Aguila at 0700 pending lab results and CT scan. Anticipate that patient would be able to be discharged home and treat symptomatically. Unless he had findings for diverticulitis or something that would indicate need for antibiotics or more aggressive care. 0725 CBC shows normal White blood cell count of 9 without a left shift. Comprehensive metabolic panel and Urinalysis pending as well as CT scan of abdomen/pelvis. (KIM OLIVER MD) Progress Note : Progress Note Patient care was assumed at shift change. Patient diagnostic studies had been ordered. Patient's studies were reviewed with no acute findings. Patient's CT abdomen pelvis was reviewed with findings suggestive of colitis. Patient has no physical findings of dehydration. He did receive a liter of IV fluids. Discussed with him supportive care including plenty of fluids. He is stable and discharged home. He should follow-up with his primary care provider as needed (MICHEAL AGUILA DO) Diagnostic Imaging Diagonstic Imaging: CT Plain Films/CT/US/NM/MRI: abdomen, pelvis Reviewed: Reviewed by Me (KIM OLIVER MD) Departure Impression Primary Impression: Left lower quadrant abdominal pain Additional Impressions: Diarrhea Qualified Codes: R19.7 - Diarrhea, unspecified Colitis Disposition: HOME, SELF-CARE Condition: Stable Departure-Patient Inst. Referrals: TAMARA MARQUES MD (PCP/Family) Primary Care Physician Patient Instructions: Diarrhea, Adult ED, Colitis (DC), Viral Gastroenteritis, Adult (DC) Add. Discharge Instructions: Try to stay well-hydrated and keep drinking plenty of water and electrolyte drinks. Try following a bland soft diet to help with your diarrhea. Try to increase the fiber in your diet. All discharge instructions reviewed with patient and/or family. Voiced understanding. KIM OLIVER MD Jan 31, 2023 07:18 MICHEAL AGUILA DO Jan 31, 2023 08:30
[2023-01-31 07:35] LABS: POTASSIUM 4.2 MMOL/L (3.6-5.0)
[2023-01-31 07:36] LABS: ALBUMIN 4.2 GM/DL (3.2-4.5); BILIRUBIN,TOTAL 0.3 MG/DL (0.1-1.0); CALCIUM 9.4 MG/DL (8.5-10.1); CREATININE SERUM 0.81 MG/DL (0.60-1.30); TOTAL PROTEIN 6.7 GM/DL (6.4-8.2)
[2023-01-31 07:50] LABS: BILIRUBIN,URINE NEGATIVE (NEGATIVE); CLARITY,URINE CLEAR; COLOR,URINE YELLOW; GLUCOSE, URINE (UA) NEGATIVE (NEGATIVE); KETONES,URINE NEGATIVE (NEGATIVE); LEUKOCYTE ESTERASE ,URINE NEGATIVE (NEGATIVE); NITRITE,URINE NEGATIVE (NEGATIVE); PROTEIN,URINE NEGATIVE (NEGATIVE)
[2023-01-31 07:59] LABS: BACTERIA,URINE NEGATIVE /HPF
[2023-01-31 08:00] LABS: SQUAMOUS EPITHELIAL CELL,UR RARE /HPF
[2023-01-31] MEDS ORDERED: NS 100 ML (IVPB) BAG IV ONE (08:00)
[2023-01-31] MEDS ORDERED: HOLD METFORMIN - RECEIVED CONTRAST 20 ML VIAL IV SCH (08:00)
[2023-01-31] MEDS ORDERED: CATHETER FLUSH 10 ML SYR IV PRN (08:00)
[2023-01-31] MEDS ORDERED: IOHEXOL 350 MG/ML 100 ML (OMNIPAQUE 350) VIAL IV ONE (08:00)
--- NOTE | 2023-01-31 08:15 | Diagnostic Imaging Report ---
PROCEDURE: CT abdomen and pelvis with contrast. TECHNIQUE: Multiple contiguous axial images were obtained through the abdomen and pelvis after administration of intravenous contrast. Auto Exposure Controls were utilized during the CT exam to meet ALARA standards for radiation dose reduction. All CT scans use one or more of the following dose optimizing techniques: automated exposure control, MA and/or KvP adjustment based on patient size and exam type or iterative reconstruction. INDICATION: Diarrhea. Correlation is made prior CT 10/10/2022. FINDINGS: The lung bases are clear. No focal liver mass is identified. The gallbladder contains numerous gallstones. There is no biliary ductal dilatation. The pancreas and spleen are unremarkable apart from small splenic cyst, stable. No adrenal mass is identified. Multiple cortical low-attenuation lesions right kidney are noted suggestive of cirrhosis. Aorta is calcified but nonaneurysmal. 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 The small and large bowel loops are normal caliber. There is no obstruction. There is some mild wall thickening of the transverse, descending and sigmoid colon, perhaps owing to nonspecific colitis. No free fluid or fluid collection is seen. The bladder and prostate are unremarkable. There are bilateral fat-containing inguinal hernias. IMPRESSION: 1. Cholelithiasis. 2. Wall thickening involving the transverse, descending and sigmoid colon consistent with nonspecific colitis. 3. Bilateral fat-containing inguinal hernias and fat-containing umbilical hernia. Dictated by: Dictated on workstation # [id number]
== END 2023-01-31 08:35 | disposition home or self-care (01) ==
LOC: EDUNIT# 06:19 → ER FS 06:22
DX: K52.9 Noninfective gastroenteritis and colitis, unspecified (principal); F17.210 Nicotine dependence, cigarettes, uncomplicated
CPT/HCPCS: 36415; 74177; 80053; 81000; 83690; 85025; 96360; 96372; Q9967